=== PATIENT | female | born 1970 | race American Indian/Alaskan Native ===

== ENCOUNTER 2018-03-12 06:48 | Day surgery (SDC) | payer OTHER ==
[2018-03-12] MEDS ORDERED: SUBLIMAZE ONE (07:35)
[2018-03-12] MEDS ORDERED: ZOFRAN ONE (07:35)
[2018-03-12] MEDS ORDERED: XYLOCAINE MPF 2% ONE (07:35)
[2018-03-12] MEDS ORDERED: REGLAN ONE (07:35)
[2018-03-12] MEDS ORDERED: QUELICIN ONE (07:35)
[2018-03-12] MEDS ORDERED: DIPRIVAN 10 MG/ML IV ONE (07:36)
--- NOTE | 2018-03-12 07:52 | Anesthesia Consultation ---
Anesthesia Consult and Med Hx Date of service: 03/12/18 - Airway Anesthetic Teeth Evaluation: Good ROM Head & Neck: Adequate Mental/Hyoid Distance: Inadequate Mallampati Class: Class II Intubation Access Assessment: Possibly Difficult - Pulmonary Exam CTA: Yes - Cardiac Exam Cardiac Exam: RRR - Pre-Operative Health Status ASA Pre-Surgery Classification: ASA3 Proposed Anesthetic Plan: General - Pulmonary Hx Smoking: Yes (current smoker; 1/3 PPD SINCE 2013) Hx Asthma: Yes (INHALER PRN; no inhaler use in sereral months) Hx Respiratory Symptoms: No Hx Sleep Apnea: Yes (compliant with CPAP) - Cardiovascular System Hx Heart Attack/AMI: No - Central Nervous System Hx Seizures: No CVA: No Hx Back Pain: Yes - Gastrointestinal Hx Gastroesophageal Reflux Disease: Yes - Endocrine Hx Renal Disease: No (renal stones) Hx Liver Disease: No Hx Insulin Dependent Diabetes: No Hx Non-Insulin Dependent Diabetes: No Hx Thyroid Disease: No - Other Systems Hx Obesity: No - Additional Comments Anesthesia Medical History Comments: PMH pseudotumor cerebri, migraines, IBD, current smoker, SHARMILA, and GERD. No recent albuterol use. No hx anesthetic complications.
--- NOTE | 2018-03-12 07:53 | Anesthesia Day of Surgery ---
Anesthesia Day of Surgery - Day of Surgery Patient Examined: Yes Patient H&P Reviewed: Yes Patient is NPO: Yes
[2018-03-12] MEDS ORDERED: VERSED IV NR (08:00)
[2018-03-12] MEDS ORDERED: LACTATED RINGERS 1,000 ML IV SCH (08:00)
[2018-03-12] MEDS ORDERED: LEVAQUIN 500MG/100ML 500 MG/100 ML BAG IV NR (08:00)
[2018-03-12] MEDS ORDERED: WATER FOR IRRIG STERILE IR ONE (08:30)
--- NOTE | 2018-03-12 08:58 | Short Stay Summary ---
Short Stay Documentation Date of service: 03/12/18 - History H&P: obtained from office - Allergies and Medications Current Medications: Allergies cephalexin Allergy (Verified 03/08/18 10:04) Shortness of Breath doxycycline Allergy (Verified 03/08/18 10:04) Shortness of Breath latex Allergy (Verified 03/08/18 10:04) Shortness of Breath minocycline Allergy (Verified 03/08/18 10:04) Rash Home Medications Medication Instructions Recorded Confirmed Last Taken Type ALBUTEROL Inhaler [Proair] 2 puff IH QID PRN 03/08/18 03/12/18 1 Month Ago History ~02/09/18 Cetirizine HCl [Zyrtec] 10 mg PO DAILY 03/08/18 03/08/18 03/12/18 05:30 History Duloxetine HCl [Cymbalta] 20 mg PO QDAY 03/08/18 03/08/18 03/12/18 05:30 History Etodolac [Lodine] 400 mg PO PRN PRN 03/08/18 03/12/18 02/26/18 History Famotidine [Pepcid] 20 mg PO PRN PRN 03/08/18 03/12/18 1 Week Ago History ~03/05/18 Fluticasone [Flonase] 1 spray NS QDAY 03/08/18 03/08/18 03/12/18 05:30 History HYDROcodone/ACETAMINOPHEN 1 each PO PRN PRN 03/08/18 03/08/18 Unknown History [Hydrocodone-Acetamin 5-325 mg] acetaZOLAMIDE [Diamox TAB] 250 mg PO DAILY 03/08/18 03/08/18 03/12/18 05:30 History Active Medications Lactated Ringer's (Lactated Ringers) 1,000 mls @ 75 mls/hr IV DIRECT MILAGROS Last Admin: 03/12/18 07:52 Dose: 75 mls/hr Levofloxacin/Dextrose (Levaquin 500mg/100ml) 500 mg in 100 mls @ 100 mls/hr IV PREOP NR; Protocol Stop: 03/12/18 11:00 Midazolam HCl (Versed) 2 mg IV PREOP NR Stop: 03/12/18 23:59 Last Admin: 03/12/18 07:52 Dose: 2 mg - Brief post op/procedure progress note Date of procedure: 03/12/18 Pre-op diagnosis: left ureteral stone Post-op diagnosis: other (impacted stone) Procedure: cysto, ureteroscopy, stent with internal string Anesthesia: KYLE Surgeon: JAIRO KIM Condition: stable - Hospital course Hospital course: justin diaz,post op info on chart - Disposition Condition at discharge: Stable Disposition: DC-01 TO HOME OR SELFCARE Short Stay Discharge Plan Follow up with: DR CONCHITA [Other] - 7 Days
[2018-03-12] MEDS ORDERED: PERCOCET 5/325 PO PRN (09:15)
[2018-03-12] MEDS ORDERED: REGLAN IV PRN (09:15)
[2018-03-12] MEDS ORDERED: TORADOL IV PRN (09:15)
[2018-03-12] MEDS ORDERED: DILAUDID IV PRN ×2 (09:15)
[2018-03-12] MEDS ORDERED: ZOFRAN IV PRN (09:15)
--- NOTE | 2018-03-12 09:16 | Fluoroscopy Report ---
FLUOROSCOPY RETROGRADE UROGRAPHY: HISTORY: Left ureteral stone. FINDINGS: Fluoroscopy was provided by radiology during retrograde urography by the urologist. 7 fluoroscopic images were captured. The right pyelogram is normal. There is suggestion of a filling defect consistent with a stone in the distal left ureter. Subsequent images demonstrate placement of a left ureteral stent which adequately drains the left collecting system. Please correlate with the procedural report by Dr. Harrington as needed. IMPRESSION: Left ureteral stone. Left ureteral stent placement.
[2018-03-12 09:58] VITALS: BP 115/71
--- NOTE | 2018-03-12 10:56 | Operative Report ---
PREOPERATIVE DIAGNOSIS: Left mid ureteral stone, 5 mm. POSTOPERATIVE DIAGNOSIS: Left mid ureteral stone, 5 mm impacted stone. PROCEDURE: Cystoscopy, bilateral retrograde pyelograms, left ureteroscopy, double-J stent placement (6-Comoran 24 cm with an internal string). SURGEON: Hosea Harrington MD ANESTHESIA: General. ESTIMATED BLOOD LOSS: Minimal. FLUIDS: Crystalloid. COMPLICATIONS: No complications, staged procedure. INDICATIONS: This patient is a 47-year-old female seen in the office. A CT of abdomen and pelvis revealed a mid-ureteral, just a 5 mm stone and also some mild degenerative disease and stomach thickening for which she is seeing a senior clinical data coordinator. We discussed options, she agreed to proceed with surgical intervention. DESCRIPTION OF PROCEDURE: The patient was taken to the operative suite, placed in a supine position. After adequate general anesthesia, placed in a dorsal lithotomy position, prepped and draped in a sterile fashion. [place] cystourethroscopy was performed with 22-Comoran Storz cystoscope. No bladder pathology. No tumors or stones. Both ureteral orifices in normal position. Bilateral retrograde pyelograms were obtained with an 8-Comoran Mal catheter and 8 mL of contrast. No filling defects or obstruction on the right. Left side, obvious filling defect in the mid ureter. Two 0.035 Glidewires were placed. Rigid ureteroscopy up to the stone could be appreciated. Multiple attempts to engage the stone with the basket and advanced the scope, past the stone were unsuccessful due to significant edema. At that point, I left a 6-Comoran 24 cm double-J stent with an external string with hopes of allowing the edema to subside. We will reevaluate for if she is a candidate for lithotripsy versus ureteroscopy in the near future. She was extubated and taken to recovery room. She will go home on [employer] and follow up in the office. [facility]# [id number] Violetta/LIDIA
--- NOTE | 2018-03-14 11:19 | Post Anesthesia Evaluation ---
- Post Anesthesia Evaluation Patient Participated: Yes Airway Patent: Yes Stable Respiratory Function: Yes Nausea/Vomiting: No Temp > 96.8F: No Pain Manageable: Yes Adequeate Hydration: Yes Anesthesia Complications: No
== END 2018-03-12 10:29 | disposition home or self-care (01) ==
LOC: OR 06:48
PROVIDERS: ATTEND Urology
DX: N21.1 Calculus in urethra (principal); Z88.8 Allergy status to other drugs, medicaments and biological substances; Z91.040 Latex allergy status; Z79.899 Other long term (current) drug therapy; G43.909 Migraine, unspecified, not intractable, without status migrainosus; F32.9 Major depressive disorder, single episode, unspecified; I10 Essential (primary) hypertension; J45.909 Unspecified asthma, uncomplicated; G47.30 Sleep apnea, unspecified; K21.9 Gastro-esophageal reflux disease without esophagitis; Z87.442 Personal history of urinary calculi; Z86.2 Personal history of diseases of the blood and blood-forming organs and certain disorders involving the immune mechanism
CPT/HCPCS: 52332; 52352; 74420; A4217; C1758; C1769; C2617; J0330; J1956; J2250; J2405; J2704; J2765; J3010; J7120; Q9967

== ENCOUNTER 2018-03-29 06:47 | Day surgery (SDC) | payer OTHER ==
[2018-03-29] MEDS ORDERED: DILAUDID IV PRN (08:00)
[2018-03-29] MEDS ORDERED: ZOFRAN IV PRN (08:00)
[2018-03-29] MEDS ORDERED: VERSED IV NR (08:00)
[2018-03-29] MEDS ORDERED: PEPCID IV NR (08:00)
[2018-03-29] MEDS ORDERED: NACL 0.9% 1000 ML 1,000 ML IV SCH ×2 (08:00)
[2018-03-29] MEDS ORDERED: VERSED ONE (08:46)
[2018-03-29] MEDS ORDERED: DIPRIVAN 10 MG/ML IV ONE (08:46)
[2018-03-29] MEDS ORDERED: SUBLIMAZE ONE (08:46)
[2018-03-29] MEDS ORDERED: XYLOCAINE MPF 2% ONE (08:47)
[2018-03-29] MEDS ORDERED: GARAMYCIN/NS 120MG/100ML 120 MG/100 ML BAG IV ONE (08:52)
[2018-03-29] MEDS ORDERED: CLEOCIN 600 MG/50 mL 600 MG/50 ML BAG IV NR (09:00)
--- NOTE | 2018-03-29 09:01 | Anesthesia Day of Surgery ---
Anesthesia Day of Surgery - Day of Surgery Patient Examined: Yes Patient H&P Reviewed: Yes Patient is NPO: Yes
--- NOTE | 2018-03-29 09:02 | Anesthesia Consultation ---
Anesthesia Consult and Med Hx Date of service: 03/29/18 - Airway Anesthetic Teeth Evaluation: Good ROM Head & Neck: Adequate Mental/Hyoid Distance: Adequate Mallampati Class: Class III Intubation Access Assessment: Possibly Difficult - Pulmonary Exam CTA: Yes - Cardiac Exam Cardiac Exam: RRR - Pre-Operative Health Status ASA Pre-Surgery Classification: ASA3 Proposed Anesthetic Plan: General (GERD Contolled, GA with LMA, Morbid obesity) - Pulmonary Hx Smoking: Yes (current smoker; 1/3 PPD SINCE 2013) Hx Asthma: Yes (INHALER PRN) Hx Respiratory Symptoms: No Hx Sleep Apnea: Yes (compliant with CPAP , DX SLEEP APNEA) - Cardiovascular System Hx Hypertension: No Hx Heart Attack/AMI: No - Central Nervous System Hx Seizures: No CVA: No Hx Back Pain: Yes - Gastrointestinal Hx Gastroesophageal Reflux Disease: Yes - Endocrine Hx Liver Disease: No Hx Insulin Dependent Diabetes: No Hx Non-Insulin Dependent Diabetes: No Hx Thyroid Disease: No - Hematic Hx Anemia: Yes (NOT RECENT) - Other Systems Hx Cancer: No Hx Obesity: No
[2018-03-29] MEDS ORDERED: ROBINUL ONE (09:51)
[2018-03-29] MEDS ORDERED: DECADRON ONE (09:51)
[2018-03-29] MEDS ORDERED: ZOFRAN ONE (09:51)
[2018-03-29] MEDS ORDERED: OMNIPAQUE (300 MG) IR ONE (10:30)
--- NOTE | 2018-03-29 11:16 | Short Stay Summary ---
Short Stay Documentation Date of service: 03/29/18 - History H&P: obtained from office - Allergies and Medications Current Medications: Allergies cephalexin Allergy (Verified 03/08/18 10:04) Shortness of Breath doxycycline Allergy (Verified 03/08/18 10:04) Shortness of Breath latex Allergy (Verified 03/08/18 10:04) Shortness of Breath minocycline Allergy (Verified 03/08/18 10:04) Rash Home Medications Medication Instructions Recorded Confirmed Last Taken Type ALBUTEROL Inhaler (OR & NICU) 2 puff IH QID PRN 03/08/18 03/27/18 1 Month Ago History [Proair] ~02/09/18 Cetirizine HCl [Zyrtec] 10 mg PO DAILY 03/08/18 03/29/18 03/28/18 History Duloxetine HCl [Cymbalta] 20 mg PO QDAY 03/08/18 03/29/18 03/28/18 History Etodolac [Lodine] 400 mg PO PRN PRN 03/08/18 03/27/18 02/26/18 History Famotidine [Pepcid] 20 mg PO PRN PRN 03/08/18 03/29/18 03/22/18 History Fluticasone [Flonase] 1 spray NS QDAY 03/08/18 03/29/18 03/19/18 History HYDROcodone/ACETAMINOPHEN 1 each PO PRN PRN 03/08/18 03/27/18 Unknown History [Hydrocodone-Acetamin 5-325 mg] acetaZOLAMIDE [Diamox TAB] 250 mg PO DAILY 03/08/18 03/29/18 03/28/18 History traMADol [Ultram] 50 mg PO Q4HR PRN 03/27/18 03/29/18 Unknown History Active Medications Famotidine (Pepcid) 20 mg IV PREOP NR Stop: 03/29/18 21:00 Last Admin: 03/29/18 08:55 Dose: 20 mg Hydromorphone HCl (Dilaudid) 0.5 mg IV Q10MIN PRN PRN Reason: Pain , Severe (7-10) Stop: 03/29/18 14:00 Sodium Chloride (Nacl 0.9% 1000 Ml) 1,000 mls @ 100 mls/hr IV DIRECT MILAGROS Last Admin: 03/29/18 08:50 Dose: 100 mls/hr Clindamycin HCl (Cleocin 600 Mg/50 Ml) 600 mg in 50 mls @ 100 mls/hr IV PREOP NR; Protocol Stop: 03/29/18 12:00 Midazolam HCl (Versed) 2 mg IV PREOP NR Stop: 03/29/18 23:59 Ondansetron HCl (Zofran) 4 mg IV ONCE PRN PRN Reason: Nausea And Vomiting Stop: 03/29/18 21:00 - Brief post op/procedure progress note Date of procedure: 03/29/18 Pre-op diagnosis: left impacted ureteral stones Post-op diagnosis: same Procedure: ESWL, left ureteroscopy, stent exchange with external string Anesthesia: KYLE Surgeon: JAIRO KIM Estimated blood loss: none Condition: stable - Hospital course Hospital course: post op dara, migdalia diaz norco on chart - Disposition Condition at discharge: Stable Disposition: DC-01 TO HOME OR SELFCARE Short Stay Discharge Plan Follow up with: PRIMARY CARE, [Primary Care Provider] - 7 Days
[2018-03-29] MEDS ORDERED: TORADOL ONE (11:18)
--- NOTE | 2018-03-29 11:26 | Post Anesthesia Evaluation ---
- Post Anesthesia Evaluation Patient Participated: Yes Airway Patent: Yes Stable Respiratory Function: Yes Nausea/Vomiting: No Temp > 96.8F: Yes Pain Manageable: Yes Adequeate Hydration: Yes Anesthesia Complications: No
--- NOTE | 2018-03-29 11:42 | Operative Report ---
PREOPERATIVE DIAGNOSIS: Impacted left ureteral stone. POSTOPERATIVE DIAGNOSES: 1. Impacted left ureteral stone. 2. Ureteral stones. PROCEDURE: Left in situ extracorporal shock wave lithotripsy, left ureteroscopy, stent exchange (6-Mongolian 24 cm with an external string). SURGEON: Hosea Harrington MD ANESTHESIA: General. ESTIMATED BLOOD LOSS: Minimal. FLUIDS: Crystalloid. COMPLICATIONS: No complications. INDICATIONS: This 47-year-old female initially seen in February for a mid left ureteral stone. She underwent cystoscopy, ureteroscopy. There was significant edema. Lithotripsy was stopped due to inability to see the stone due to edema and bleeding. Stent was placed. She presents now for lithotripsy and possible second look. DESCRIPTION OF PROCEDURE: The patient was taken to the operative suite, placed in supine position. After adequate general anesthesia, stone was localized in 2 planes next to the stent in the mid ureter actually with two fragments, approximately 4-5 mm each. Extracorporal shock wave lithotripsy was administered in maximum kV of ten 2500 shocks, appeared to have adequate fragmentation; however, the patient wanted her stent out at this time as well and therefore she was then taken to the cystoscopy suite where a stent was removed. A wire was placed. Rigid ureteroscopy up to the area of concern, significant edema still there. I was not able to go past the area of concern with small particles which could be washed away. No obvious fragments that required basket extraction. Due to still with a fair amount of edema, I made the decision to place a second stent this time with an external string for easy removal. Her bladder was drained. She was extubated and taken to recovery room. She will go home on [email or web address]. JOB# [id number] [facility]/NT[facility]
[2018-03-29 12:30] VITALS: BP 118/74
--- NOTE | 2018-03-30 07:22 | Fluoroscopy Report ---
FLUORO RETROGRADE UROGRAPHY INDICATION: Left ureteral stone. COMPARISON: 03/12/2018. IMAGES/CINE CLIPS: 7 FINDINGS: Fluoroscopy provided by radiology during retrograde urography by the urologist. Initial lap welder radiographs again demonstrate left double-J ureteral stent in place as also bilateral Essure devices. Mild L3-L4 degenerative spurring. Subsequently, left ureteral stent removed and ureteroscopy performed. Left stone removed with grasper. Left retrograde pyelogram suggests mild hydronephrosis and possible proximal hydroureter. Left stent satisfactorily positioned at the end of the exam. CONCLUSION: Intraoperative fluoroscopic assistance provided for left ureteroscopy, stone removal with grasper, retrograde pyelogram and stent placement, as described. Please also correlate with the procedural report by Dr. Harrington, as needed. Thank you for the opportunity to participate in this patient's care.
== END 2018-03-29 13:00 | disposition home or self-care (01) ==
LOC: OR 06:47
PROVIDERS: ATTEND Urology
DX: N20.1 Calculus of ureter (principal); J45.909 Unspecified asthma, uncomplicated; K21.9 Gastro-esophageal reflux disease without esophagitis; F17.210 Nicotine dependence, cigarettes, uncomplicated; F32.9 Major depressive disorder, single episode, unspecified; D64.9 Anemia, unspecified; Z91.040 Latex allergy status; Z88.8 Allergy status to other drugs, medicaments and biological substances; Z79.899 Other long term (current) drug therapy; Z87.442 Personal history of urinary calculi
CPT/HCPCS: 50590; 52332; 74420; C1769; C2617; J1100; J1580; J1885; J2250; J2405; J2704; J3010; J7030; Q9967